=== PATIENT | female | born 1955 | race Caucasian/White ===

== ENCOUNTER 2023-03-26 10:49 | Emergency (ER) | payer MEDICARE, OTHER ==
[~2023-03-26] VITALS: Ht 157.5 cm; Wt 74.8 kg
--- OUTSIDE RECORDS SUMMARY | 2023-03-26 10:52 | XMS ---
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 Clarisse has no Care Guidelines for this patient. Tonia VISIT COUNT (12 MO.) 1 [facility] [place] TOTAL 1 NOTE: Visits indicate total known visits. ED/C VISIT TRACKING (12 MO.) 03/26/2023 10:50 [facility] [place] TYPE: Emergency COMPLAINT: - R KNEE PAIN INPATIENT VISIT TRACKING (12 MO.) No inpatient visits to display in this time frame [email or web address]
[2023-03-26] MEDS ORDERED: CRUTCHES XX (14:25)
[2023-03-26 14:33] VITALS: BP 141/71
== END 2023-03-26 14:33 | disposition home or self-care (01) ==
LOC: ED 10:49
DX: S83.91XA Sprain of unspecified site of right knee, initial encounter (principal); X50.1XXA Overexertion from prolonged static or awkward postures, initial encounter; Y93.K1 Activity, walking an animal
CPT/HCPCS: 73560; 99283-25